=== PATIENT | female | born 1985 | race Caucasian/White ===

== ENCOUNTER 2016-12-30 02:18 | Emergency (ER) | payer BC ==
[2016-12-30 02:36] VITALS: BP 93/55
[2016-12-30] MEDS ORDERED: Metoclopramide 10 MG/2 ML SDV IVPUSH ONE (02:47)
--- NOTE | 2016-12-30 02:50 | EDM.PDOC ---
ED HPI GENERAL MEDICAL PROBLEM - General Chief Complaint: Gastrointestinal Problem Stated Complaint: [facility] Time Seen by Provider: 12/30/16 02:46 Source of Information: Reports: Patient History Limitations: Reports: No Limitations - History of Present Illness INITIAL COMMENTS - FREE TEXT/NARRATIVE: 31-year-old female arrives in the ED per [facility]. Patient according to history was of drinking alcohol fairly heavily last evening and has been vomiting since shortly after midnight. Apparently intractable nausea and vomiting with no noted hematemesis. She therefore call the ambulance. She did not receive any medications en route to hospital. Continues to dry heave primarily at this time she reports she is otherwise healthy was drinking primarily [employer] lemonade last evening. Onset: Today Onset Date: 12/30/16 Onset Time: 00:30 Duration: Hour(s):, Constant Location: Reports: Other (Intractable nausea and vomiting) Severity: Severe Improves with: Reports: None Worsens with: Reports: None Context: Reports: Other (Fairly heavy alcohol use last evening.). 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 None.) - Related Data Allergies Allergy/AdvReac Type Severity Reaction Status Date / Time No Known Allergies Allergy Verified 10/04/13 18:03 CDT Home Meds: Home Meds . [No Known Home Meds] 10/04/13 [History] Past Medical History - Past Health History Medical/Surgical History: Denies Medical/Surgical History Social & Family History - Family History Family Medical History: Noncontributory - Tobacco Use Smoking Status *Q: Current Every Day Smoker Years of Tobacco use: 5 Packs/Tins Daily: 0.8 - Alcohol Use Days Per Week of Alcohol Use: 0 - Recreational Drug Use Recreational Drug Use: No - Living Situation & Occupation Living situation: Reports: Single Occupation: Employed ED ROS GENERAL - Review of Systems Review Of Systems: See Below Constitutional: Reports: Weakness, Fatigue, Decreased Appetite. Denies: Fever, Chills, Malaise HEENT: Reports: Other (Nasal congestion since some of the emesis has come out of her nose.) Respiratory: Reports: No Symptoms Cardiovascular: Reports: No Symptoms Endocrine: Reports: No Symptoms GI/Abdominal: Reports: Abdominal Pain (From vomiting so much.), Nausea, Vomiting (Intractable nausea and vomiting for the last 2-1/2 hours.). Denies: Diarrhea, Hematemesis : Reports: No Symptoms Musculoskeletal: Reports: No Symptoms Skin: Reports: No Symptoms Neurological: Reports: No Symptoms Psychiatric: Reports: No Symptoms Hematologic/Lymphatic: Reports: No Symptoms Immunologic: Reports: No Symptoms ED EXAM, GI/ABD - Physical Exam Exam: See Below Exam Limited By: Intoxication (She is moderately intoxicated by alcohol but cooperative) General Appearance: Alert, Mild Distress. No: Active Emesis Eyes: Bilateral: Normal Appearance (Conjunctiva are both injected bilaterally) Throat/Mouth: Normal Inspection, Normal Lips, Normal Oropharynx Head: Atraumatic, Normocephalic Neck: Normal Inspection, Supple, Non-Tender, Full Range of Motion. No: Lymphadenopathy (R) Respiratory/Chest: No Respiratory Distress, Lungs Clear, Normal Breath Sounds, Chest Non-Tender, Other Cardiovascular: Normal Peripheral Pulses, Regular Rate, Rhythm, No Edema, No Murmur (No signs of aspiration.) GI/Abdominal Exam: Normal Bowel Sounds, No Organomegaly, No Distention, No Mass , Tender (Mostly in the epigastrium and appears to be muscular.) Back Exam: Normal Inspection, Full Range of Motion. No: CVA Tenderness (L), CVA Tenderness (R) Extremities: Normal Inspection, Normal Range of Motion, Non-Tender, No Pedal Edema, Normal Capillary Refill Neurological: Alert, Oriented, Normal Cognition. No: Normal Gait (Ataxic gait.) Psychiatric: Tearful Skin Exam: Warm, Dry, Intact, Normal Color, No Rash Course - Vital Signs Last Recorded V/S: Last Vital Signs Temp 36.9 C 12/30/16 02:33 Pulse 87 12/30/16 02:33 Resp 16 12/30/16 02:33 BP 93/55 L 12/30/16 02:33 Pulse Ox 98 12/30/16 02:33 - Orders/Labs/Meds Labs: Laboratory Tests 12/30/16 12/30/16 12/30/16 Range/Units 02:40 02:40 02:40 WBC 5.25 (3.98-10.04) K/mm3 RBC 3.74 L (3.98-5.22) M/mm3 Hgb 12.4 (11.2-15.7) gm/L Hct 36.4 (34.1-44.9) % MCV 97.3 H (79.4-94.8) fl MCH 33.2 H (25.6-32.2) pg MCHC 34.1 (32.2-35.5) g/dl RDW Std Deviation 40.9 (36.4-46.3) fL Plt Count 220 (182-369) K/mm3 MPV 10.8 (9.4-12.3) fl Neutrophils % (Manual) 51 (40-60) % Band Neutrophils % 0 (0-10) % Lymphocytes % (Manual) 35 (20-40) % Atypical Lymphs % 1 % Monocytes % (Manual) 5 (2-10) % Eosinophils % (Manual) 5 (0.7-5.8) % Basophils % (Manual) 3 H (0.1-1.2) Platelet Estimate Adequate Plt Morphology Comment Normal RBC Morph Comment Normal Sodium 147 H (136-145) mEq/L Potassium 3.2 L (3.5-5.1) mEq/L Chloride 107 (98-107) mEq/L Carbon Dioxide 30 (21-32) mEq/L Anion Gap 13.2 (5-15) BUN 23 H (7-18) mg/dL Creatinine 1.2 H (0.55-1.02) mg/dL Est Cr Clr Drug Dosing 57.58 mL/min Estimated GFR (MDRD) 52 (>60) mL/min BUN/Creatinine Ratio 19.2 H (14-18) Glucose 107 H (74-106) mg/dL Calcium 9.2 (8.5-10.1) mg/dL Magnesium 2.1 (1.8-2.4) mg/dl Total Bilirubin 0.2 (0.2-1.0) mg/dL AST 23 (15-37) U/L ALT 27 (14-59) U/L Alkaline Phosphatase 61 (46-116) U/L Total Protein 6.8 (6.4-8.2) g/dl Albumin 4.0 (3.4-5.0) g/dl Globulin 2.8 gm/dL Albumin/Globulin Ratio 1.4 (1-2) Amylase 105 (25-115) U/L HCG, Qual Negative (NEGATIVE) Ethyl Alcohol 0.18 (0.00) gm% Meds: Medications Discontinued Medications Generic Name Dose Route Start Last Admin Trade Name Kendrick PRN Reason Stop Dose Admin Dextrose/Sodium Chloride 1,000 mls @ 500 mls/hr 12/30/16 03:00 12/30/16 02:56 Dextrose 5%-Normal Saline IV 500 mls/hr ASDIRECTED GOPAL Administration Metoclopramide HCl 7.5 mg 12/30/16 02:47 12/30/16 02:57 Reglan IVPUSH 12/30/16 02:48 7.5 mg ONETIME ONE Administration - Radiology Interpretation Free Text/Narrative:: 31-year-old female presents to the ED per [facility]. She presents primarily because of intractable nausea and vomiting for the last 2-1/2 hours. Ports that she was out drinking alcohol last evening had approximately 3 [employer] lemonade. Bystanders indicated was much more than this. At any rate she's been vomiting uncontrollably for the last 2-1/2 hours. Examination reveals clear lung miller. She does smell strongly of alcohol. She is alert and cooperative however. She has some mild to moderate upper abdominal epigastric tenderness I presume from vomiting. Plan IV D5 normal saline at 500 mils an hour. Will give Reglan 7.5 mg IV to arrest vomiting. Routine labs to be obtained as well as a serum amylase. - Re-Assessments/Exams Free Text/Narrative Re-Assessment/Exam: 12/30/16 04:17 labs are back showing a normal white count at 5.25 with normal differential with 51% neutrophils and no bands. Hemoglobin is 12.4 with hematocrit 36.4. Platelets are 220,000. Sodium was 147 potassium is low normal at 3.2 compared with alcohol use. Chloride is 107 bicarbonate is 30. Anion gap is normal at 13.2 BUN is 23 . Creatinine is 1.2. Glucose is 107 . Magnesium 2.1. hCG was negative. blood alcohol was 0.18 g percent. Amylase is normal. Has had no further vomiting and is now resting comfortably. 12/31/16 05:20: Patient is completed liter of IV fluids and is feeling better with no further nausea or vomiting. She has a friend here who is willing to drive her back to [facility]. She'll be released into her care. Departure - Departure Time of Disposition: 05:14 Disposition: Home, Self-Care 01 Condition: Fair Clinical Impression: Nausea and vomiting in adult patient Acute alcohol intoxication Qualifiers: Complication of substance-induced condition: with unspecified complication Qualified Code(s): F10.929 - Alcohol use, unspecified with intoxication, unspecified - Discharge Information Instructions: Nausea, Adult, Alcohol Intoxication, [id number] Referrals: PCP,None [Primary Care Provider] - Forms: ED Department Discharge Additional Instructions: Evaluation in the emergency room this morning due to intractable nausea and vomiting. It appears at the cause was alcohol induced gastritis or inflammation of the stomach lining from alcohol that caused persistent vomiting. Lab work did not show any signs of liver or pancreas involvement. Blood alcohol was 0.18 g percent. Treated with a liter of IV fluids to rehydrate you and medication to stop the vomiting. This allowed her to sleep for a period of time. Treatment is now to sleep and allow the alcohol to leave your system which will be around 9 hours from the time you are in the ED. He will not be able to operate a motor vehicle legally until after noon today. May resume regular diet suggest Gatorade or Powerade for rehydrating today.
[2016-12-30] MEDS ORDERED: Dextrose 5%-0.9% NaCl 1,000 ML IV SCH (03:00)
== END 2016-12-30 05:25 | disposition home or self-care (01) ==
LOC: JD.ED 02:18
DX: F10.129 Alcohol abuse with intoxication, unspecified (principal); F17.210 Nicotine dependence, cigarettes, uncomplicated
CPT/HCPCS: 36415; 80053; 82150; 83735; 84703; 85025; 96361; 96374; 99284; G0480; J2765; J7042; 99283